=== PATIENT | female | born 1945 | race Caucasian/White ===

== ENCOUNTER 2018-04-26 07:49 | Day surgery (SDC) | payer OTHER, MEDICAID ==
[2018-04-26] MEDS ORDERED: ceFAZolin 2 GM/DEXTROSE 100 ML IV ONE (08:07)
[2018-04-26] MEDS ORDERED: LR 1,000 ML IV ONE (08:09)
[2018-04-26] MEDS ORDERED: NS 1,000 ML IV ONE (08:11)
[2018-04-26 09:31] LABS: PLATELET COUNT 238 10^3/uL (150-400)
[2018-04-26] MEDS ORDERED: MIDAZOLAM 2 MG/2 ML VIAL IVP ONE (09:49)
--- NOTE | 2018-04-26 09:50 | PDANEPAE ---
ANE History of Present Illness av fistula ANE Past Medical History - Cardiovascular History Hx Hypertension: Yes Hx Arrhythmias: No Hx Chest Pain: No Hx Coronary Artery / Peripheral Vascular Disease: No Hx CHF / Valvular Disease: No Hx Palpitations: No Cardiovascular History Comment: pcp monitors bp medications - Pulmonary History Hx COPD: No Hx Asthma/Reactive Airway Disease: No Hx Recent Upper Respiratory Infection: No Hx Oxygen in Use at Home: No Hx Sleep Apnea: No Sleep Apnea Screening Result - Last Documented: Negative Pulmonary History Comment: hx of acute bronchitis - Neurologic History Hx Cerebrovascular Accident: No Hx Seizures: No Hx Dementia: No Neurologic History Comment: diabetic neuropathy/ peripheral neuropathy - Endocrine History Hx Diabetes: Yes Hypothyroid: Yes Hyperthyroid: No Obesity: yes Endocrine History Comment: type 2. hypothyroidism - Renal History Hx Renal Disorders: No Renal History Comment: CKD stg 4. sees dr balderas at [facility] in [place] - Liver History Hx Hepatic Disorders: No - Neurological & Psychiatric Hx Hx Neurological and Psychiatric Disorders: Yes Neurological / Psychiatric History Comment: slight depression - Cancer History Hx Cancer: No Cancer History Comment: misdiagnosis of breast ca in [place] - Congenital Disorder History Hx Congenital Disorders: No - GI History Hx Gastrointestinal Disorders: Yes Gastrointestinal History Comment: reflux. chronic diarrhea - Other Health History Other Health History: partial lower plate. full upper denture. dry/ itchy skin - Chronic Pain History Chronic Pain: No - Surgical History Prior Surgeries: bilateral TKA. left shoulder repair. left mastectomy. emelia. back surgeries x 3 ANE Review of Systems Review of Systems: - Exercise capacity METS (RN): 4 METS ANE Patient History - Allergies Allergies/Adverse Reactions: No Known Allergies Allergy (Verified 04/23/18 13:00) - Home Medications Home Medications: Allopurinol 04/23/18 [Last Taken 04/26/18 07:00] Amlodipine Besylate 04/23/18 [Last Taken 04/26/18 07:00] Atorvastatin Calcium HS 04/23/18 [Last Taken 04/25/18] Calcitriol 04/23/18 [Last Taken Unknown] DULoxetine 04/23/18 [Last Taken Unknown] Furosemide 04/23/18 [Last Taken 04/25/18] Gabapentin PRN 04/23/18 [Last Taken 1 Week Ago ~04/19/18] Lantus HS 04/23/18 [Last Taken 04/25/18] Levothyroxine 04/23/18 [Last Taken 04/26/18 07:00] Losartan Potassium 04/23/18 [Last Taken 04/26/18 07:00] Ranitidine HCl 04/23/18 [Last Taken 04/25/18] hydrALAZINE TID 04/23/18 [Last Taken 04/26/18 07:00] novoLOG BID AT 7AM AND 3PM 04/23/18 [Last Taken 04/24/18] - NPO status NPO Status: no food or drink >8 hours NPO Since - Liquids (Date): 04/25/18 NPO Since - Liquids (Time): 23:00 NPO Since - Solids (Date): 04/25/18 NPO Since - Solids (Time): 18:00 - Smoking Hx Smoking Status: Never smoked - Family Anes Hx Family Hx Anesthesia Complications: none ANE Labs/Vital Signs - Labs Result Diagrams: 04/26/18 09:13 04/26/18 09:13 - Vital Signs Blood Pressure: 144/78 Heart Rate: 88 Respiratory Rate: 18 O2 Sat (%): 95 Height: 160.02 cm Weight: 90.718 kg ANE Physical Exam - Airway Mallampati Score: Class 2 Mouth exam: normal dental/mouth exam - Pulmonary Pulmonary: no respiratory distress - Cardiovascular Cardiovascular: regular rate and rhythym - ASA Status ASA Status: III ANE Anesthesia Plan Anesthesia Plan: general endotracheal anesthesia
[2018-04-26] MEDS ORDERED: PAPAVERINE HCL 60 MG/2 ML SDV ONE (09:52)
[2018-04-26] MEDS ORDERED: BUPIVACAINE 0.5% 30 ML SDV ONE (09:53)
[2018-04-26] MEDS ORDERED: DEXAMETHASONE 4 MG/ML VIAL ONE (09:53)
[2018-04-26] MEDS ORDERED: PROTAMINE SULFATE 50 MG/5 ML VIAL IVP ONE (09:53)
[2018-04-26] MEDS ORDERED: HEPARIN 10,000 UNIT/10 ML MDV (1,000 UNIT/ML) ONE (09:53)
[2018-04-26] MEDS ORDERED: ROCURONIUM 50 MG/5 ML VIAL ONE (09:53)
[2018-04-26] MEDS ORDERED: ONDANSETRON 4 MG/2 ML VIAL ONE (09:53)
[2018-04-26] MEDS ORDERED: THROMBIN (BOVINE) 20,000 UNIT SPRAY TP ONE (09:54)
[2018-04-26] MEDS ORDERED: fentaNYL 100 MCG/2 ML INJ ONE (09:54)
[2018-04-26] MEDS ORDERED: THROMBIN (BOVINE) 5,000 UNIT VIAL TP ONE (09:54)
[2018-04-26] MEDS ORDERED: PROPOFOL 200 MG/20 ML VIAL ONE (09:54)
[2018-04-26] MEDS ORDERED: LIDOCAINE 2% 2 ML INJ ONE ×2 (09:54)
[2018-04-26] MEDS ORDERED: SUCCINYLCHOLINE CHLORIDE 200 MG/10 ML SYR IVP ONE (09:56)
[2018-04-26] MEDS ORDERED: PHENYLEPHRINE HCL 100 MCG/ML SYR ONE (11:02)
[2018-04-26] MEDS ORDERED: ALBUTEROL 3 ML DEYVIAL IH PRN (11:02)
[2018-04-26] MEDS ORDERED: NALOXONE HCL 0.4 MG/ML INJ IVP PRN (11:02)
[2018-04-26] MEDS ORDERED: ONDANSETRON 4 MG/2 ML VIAL IVP PRN (11:02)
[2018-04-26] MEDS ORDERED: fentaNYL 100 MCG/2 ML INJ IVP PRN (11:02)
[2018-04-26] MEDS ORDERED: SUGAMMADEX SODIUM 200 MG/2 ML VIAL IVP ONE (11:16)
--- NOTE | 2018-04-26 11:40 | POSTANESTH ---
Post Anesthetic Evaluation Cardiovascular Status: Normal, Stable Respiratory Status: Normal, Stable Level of Consciousness/Mental Status: Can Participate in Eval Pain Control: Adequate, Prn Tx Ordered Nausea/Vomiting Control: Adequate, Prn Tx Ordered Complications Possibly Related to Anesthesia: None Noted
--- NOTE | 2018-04-26 11:43 | PDHPUP ---
History & Physical Update H&P update statement: This history and physical update is based on an assessment of the patient which was completed after admission or registration (within 24 hours), but prior to the surgery/procedure. H&P update: H&P reviewed & patient examined, no change in patient's condition since H&P completed
--- NOTE | 2018-04-26 11:43 | POSTOPPROG ---
Post Op Note Date of Operation: 04/26/18 Surgeon: Levar Cam Chair Pad Maker: Dc Anesthesiologist: Jacobo Anesthesia: GET(General Endotracheal) Pre-op Diagnosis: ESRD Post-op Diagnosis: same Indication: Need for dialysis Procedure: RUE brachiocephalic AF Findings: Good thrill Inf/Abcess present in the surg proc area at time of surgery?: No Depth: Superfical (Skin SQ) EBL: Minimal
[2018-04-26 13:35] VITALS: BP 130/60
== END 2018-04-26 13:30 | disposition home or self-care (01) ==
LOC: FSGY 07:49
PROVIDERS: ATTEND Surgery
PROC: 03170ZD Bypass Right Brachial Artery to Upper Arm Vein, Open Approach (ICD-10-PCS; principal; 2018-04-26 09:30)
DX: N18.4 Chronic kidney disease, stage 4 (severe) (principal); E11.22 Type 2 diabetes mellitus with diabetic chronic kidney disease; E11.21 Type 2 diabetes mellitus with diabetic nephropathy; E11.36 Type 2 diabetes mellitus with diabetic cataract; I12.9 Hypertensive chronic kidney disease with stage 1 through stage 4 chronic kidney disease, or unspecified chronic kidney disease; E03.9 Hypothyroidism, unspecified
CPT/HCPCS: J0330; J0690; J1100; J1644; J2250; J2370; J2405; J2440; J2704; J2720; J3010